=== PATIENT | male | born 1985 | race Caucasian/White ===

== ENCOUNTER 2022-03-21 01:56 | Emergency (ER) | payer MEDICAID ==
[~2022-03-21] VITALS: Ht 180.3 cm; Wt 74.8 kg
[2022-03-21] MEDS ORDERED: ketorolac trometh. 30mg/ml inj. IM ONE (02:25)
[2022-03-21] MEDS ORDERED: LIDOcaine 1% W/epiNEPHrine 1:200,000 10ml vial IJ ONE (03:00)
[2022-03-21] MEDS ORDERED: LIDOcaine 1% W/epiNEPHrine 1:100,000 20ml vial SQ ONE (03:10)
[2022-03-21 04:55] VITALS: BP 123/72
== END 2022-03-21 05:28 | disposition home or self-care (01) ==
LOC: ER 01:57
DX: S31.010A Laceration without foreign body of lower back and pelvis without penetration into retroperitoneum, initial encounter (principal); V49.9XXA Car occupant (driver) (passenger) injured in unspecified traffic accident, initial encounter; Y93.89 Activity, other specified; Y92.89 Other specified places as the place of occurrence of the external cause; Y99.8 Other external cause status; F15.10 Other stimulant abuse, uncomplicated
CPT/HCPCS: 12002; 70450; 71250; 72125; 74176; 96372; 99284; J1885

== ENCOUNTER 2022-07-03 20:52 | Emergency (ER) | payer MEDICAID ==
[2022-07-03] MEDS ORDERED: ketorolac trometh. 30mg/ml inj. IV ONE (21:25)
[2022-07-03] MEDS ORDERED: tetanus & diphtheria toxoid (Td) vaccine 0.5ml IMVAC ONE (21:25)
[2022-07-03 21:41] LABS: BASOPHILS # (AUTO) 0.1 X10'3 (0-0.2); BASOPHILS % (AUTO) 0.7 % (0-1); EOSINOPHILS # (AUTO) 0.6 X10'3 (0-0.9); EOSINOPHILS % (AUTO) 6.4 % (0-6); HEMATOCRIT 41.7 % (42.0-52.0); HEMOGLOBIN 14.3 g/dl (14.0-17.9); LYMPHOCYTES # (AUTO) 2.4 X10'3 (1.1-4.8); LYMPHOCYTES % (AUTO) 25.5 % (21-51); MEAN CORPUSCULAR HEMOGLOBIN 30.3 PG (27.0-31.0); MEAN CORPUSCULAR HGB CONC 34.2 g/dL (33.0-36.5); MEAN CORPUSCULAR VOLUME 88.7 FL (78-98); MEAN PLATELET VOLUME 8.4 FL (7.4-10.4); MONOCYTES # (AUTO) 0.7 X10'3 (0-0.9); MONOCYTES % (AUTO) 7.8 % (2-12); NEUTROPHILS # (AUTO) 5.5 X10'3 (1.8-7.7); NEUTROPHILS % (AUTO) 59.6 % (42-75); PLATELET COUNT 325 X10'3 (140-440); RED CELL DISTRIBUTION WIDTH 12.9 % (11.5-14.5); WHITE BLOOD COUNT 9.2 X10'3 (4.5-11.0)
[2022-07-03] MEDS ORDERED: ampicillin/sulbac 3gm/NS 100ml 100 ML IV ONE (21:50)
[2022-07-03] MEDS ORDERED: TETanus/Pertussis (Acell)/Diphther VAC/PF (Tdap-Adult) 0.5ml syringe IMVAC ONE (21:55)
[2022-07-03 21:58] LABS: ALANINE AMINOTRANSFERASE 22 U/L (12-78); ALBUMIN 3.6 G/DL (3.4-5.0); ALBUMIN/GLOBULIN RATIO 1.1 (1.1-1.5); ALKALINE PHOSPHATASE 65 IU/L (46-116); ANION GAP 11 (8-16); ASPARTATE AMINO TRANSFERASE 20 U/L (10-37); BILIRUBIN,TOTAL 0.5 MG/DL (0.1-1.0); BLOOD UREA NITROGEN 16 MG/DL (7-18); BUN/CREATININE RATIO 14.4 (5.4-32.0); CALCIUM 8.7 MG/DL (8.5-10.1); CHLORIDE 105 MMOL/L (99-107); CREATININE 1.11 MG/DL (0.60-1.10); GLUCOSE 130 MG/DL (70-104); SODIUM 140 MMOL/L (135-145); TOTAL CARBON DIOXIDE 23.8 MMOL/L (24-32); eGFR 75 ML/MIN
--- NOTE | 2022-07-03 22:00 | NUR ---
ICE PACKS APPLIED TO RIGHT FACE
--- NOTE | 2022-07-03 23:22 | NUR ---
PT IS 5FT 10 INCHES
--- NOTE | 2022-07-03 23:38 | NUR ---
BROTHER KUSHAL @ [phone] SIG OTHER ISMA [phone]
--- NOTE | 2022-07-03 23:41 | NUR ---
PUPILS 2MM BILAT EQUAL AND REACTIVE NORMALLY.
[2022-07-04 01:30] VITALS: BP 132/80
== END 2022-07-04 01:41 | disposition short-term general hospital (02) ==
LOC: ER 20:53
DX: S02.92XA Unspecified fracture of facial bones, initial encounter for closed fracture (principal); S01.411A Laceration without foreign body of right cheek and temporomandibular area, initial encounter; Z20.822 Contact with and (suspected) exposure to COVID-19; F15.90 Other stimulant use, unspecified, uncomplicated; Z56.0 Unemployment, unspecified; Z88.1 Allergy status to other antibiotic agents; Z98.890 Other specified postprocedural states; X58.XXXA Exposure to other specified factors, initial encounter; Y93.9 Activity, unspecified; Y92.89 Other specified places as the place of occurrence of the external cause; Y99.8 Other external cause status
CPT/HCPCS: 36415; 70450; 70486; 71045; 72125; 80053; 85025; 87811; 90471; 90715; 96365; 96375; 99285; J0295; J1885; A6446

== ENCOUNTER 2023-03-24 18:07 | Emergency (ER) | payer MEDICAID ==
[~2023-03-24] VITALS: Ht 180.3 cm; Wt 84.9 kg
[2023-03-24 18:10] VITALS: BP 138/80
== END 2023-03-24 19:25 | disposition home or self-care (01) ==
LOC: ER 18:08
DX: K40.90 Unilateral inguinal hernia, without obstruction or gangrene, not specified as recurrent (principal); F15.10 Other stimulant abuse, uncomplicated; Z88.1 Allergy status to other antibiotic agents; Z56.0 Unemployment, unspecified
CPT/HCPCS: 72192; 74018; 99284

== ENCOUNTER 2024-03-20 00:43 | Emergency (ER) | payer MEDICAID ==
[~2024-03-20] VITALS: Ht 180.3 cm; Wt 81.6 kg
[2024-03-20] MEDS: MIDAZolam 5mg/ml 2ml vial IV ONE (01:05)
[2024-03-20] MEDS ORDERED: iohexol 300mg/ml 100ml inj. ONE (01:11)
[2024-03-20] MEDS: ketamine 10mg/ml 20ml inj vial IV ONE ×6 (01:17→02:44)
[2024-03-20] MEDS: ketamine 50 mg/ml 10ml vial IV ONE (01:17)
[2024-03-20 01:52] LABS: APTT 23 SECONDS (22-32); INR 1.1 INR; PROTHROMBIN TIME 11.4 SECONDS (9.0-12.0)
[2024-03-20 01:56] LABS: EOSINOPHILS # (AUTO) 0.3 X10'3 (0-0.9)
[2024-03-20 02:05] LABS: ALBUMIN 3.7 G/DL (3.4-5.0); ANION GAP 12 (8-16); BASOPHILS % (AUTO) 0.6 % (0-1); BLOOD UREA NITROGEN 14 MG/DL (7-18); BUN/CREATININE RATIO 11.8 (10.0-20.0); CALCIUM 8.6 MG/DL (8.5-10.1); CHLORIDE 104 MMOL/L (99-107); CKMB RELATIVE INDEX 1.4 RATIO (0-2.5); CREATINE KINASE 250 U/L (39-308); CREATINE KINASE MB 3.6 ng/ml (0.3-3.6); CREATININE 1.19 MG/DL (0.60-1.10); EOSINOPHILS % (AUTO) 3.9 % (0-6); ETHANOL < 10 MG/DL (<10); GLUCOSE 140 MG/DL (70-104); HEMATOCRIT 37.9 % (42.0-52.0); HEMOGLOBIN 13.1 g/dl (14.0-17.9); LYMPHOCYTES # (AUTO) 2.5 X10'3 (1.1-4.8); LYMPHOCYTES % (AUTO) 29.7 % (21-51); MEAN CORPUSCULAR HEMOGLOBIN 29.9 PG (27.0-31.0); MEAN CORPUSCULAR HGB CONC 34.5 g/dL (33.0-36.5); MEAN CORPUSCULAR VOLUME 86.8 FL (78-98); MEAN PLATELET VOLUME 8.9 FL (7.4-10.4); MONOCYTES # (AUTO) 1.2 X10'3 (0-0.9); MONOCYTES % (AUTO) 14.2 % (2-12); NEUTROPHILS # (AUTO) 4.4 X10'3 (1.8-7.7); NEUTROPHILS % (AUTO) 51.6 % (42-75); PLATELET COUNT 326 X10'3 (140-440); POTASSIUM 3.7 MMOL/L (3.5-5.1); RED BLOOD COUNT 4.37 X10'6 (4.70-6.10); SODIUM 142 MMOL/L (135-145); WHITE BLOOD COUNT 8.5 X10'3 (4.5-11.0); eCRCL 90 ML/MIN; eGFR 68 ML/MIN
[2024-03-20 02:07] LABS: URINE AMPHETAMINE SCREEN POSITIVE (Neg); URINE BARBITUATE SCREEN NEGATIVE (Neg); URINE BENZODIAZEPINES SCREEN POSITIVE (Neg); URINE CANNABINOID SCREEN POSITIVE (Neg); URINE COCAINE SCREEN NEGATIVE (Neg); URINE METHADONE SCREEN NEGATIVE (Neg); URINE OPIATE SCREEN NEGATIVE (Neg); URINE PHENCYCLIDINE SCREEN NEGATIVE (Neg)
[2024-03-20 02:08] LABS: BILIRUBIN,URINE NEGATIVE (Neg); CLARITY,URINE SLIGHTLY CLOUDY (Clear); COLOR,URINE YELLOW (Yellow); GLUCOSE, URINE NEGATIVE (Neg); KETONES,URINE NEGATIVE (Neg); LEUKOCYTE ESTERASE ,URINE NEGATIVE (Neg); NITRITES, URINE NEGATIVE (Neg); OCCULT BLOOD,URINE TRACE-INTACT (Neg); PH,URINE 5.5 (4.8-8.0); PROTEIN,URINE 30 mg/dl (Neg); UROBILINOGEN,URINE 0.2 E.U/dL (0.2-1.0)
[2024-03-20 02:10] LABS: UA COLLECTION TYPE NON-SPECIFIED
[2024-03-20 02:12] LABS: HYALINE CASTS >30 /LPF (NEGATIVE); MUCUS STRANDS MANY /LPF (Neg)
[2024-03-20 02:13] LABS: WBC,URINE 0-4 /HPF (0-4)
[2024-03-20 02:16] LABS: FINE GRANULAR CAST 0-3 /LPF (NEGATIVE)
[2024-03-20 02:17] LABS: BACTERIA,URINE 1+ /HPF (Neg); SQUAMOUS EPITHELIAL CELL,UR MODERATE /LPF (FEW)
[2024-03-20] MEDS ORDERED: ceFAZolin/D5W- 1GM premix 50 ML IV SCH (02:25)
[2024-03-20] MEDS ORDERED: tetanus & diphtheria toxoid (Td) vaccine 0.5ml IMVAC ONE (02:25)
[2024-03-20] MEDS: ceFAZolin/D5W- 1GM premix 50 ML IV ONE (02:53)
[2024-03-20] MEDS: TETanus/Pertussis (Acell)/Diphther VAC/PF (Tdap-Adult) 0.5ml syringe IMVAC ONE (02:55)
[2024-03-20 03:21] VITALS: TEMP 98.1
[2024-03-20 05:44] VITALS: BP 125/90; PULSE 63; RESP 15; O2SAT 100
== END 2024-03-20 05:52 ==
LOC: ER 00:43
DX: S51.012A Laceration without foreign body of left elbow, initial encounter (principal); S31.113A Laceration without foreign body of abdominal wall, right lower quadrant without penetration into peritoneal cavity, initial encounter; S51.011A Laceration without foreign body of right elbow, initial encounter; S82.001A Unspecified fracture of right patella, initial encounter for closed fracture; R79.1 Abnormal coagulation profile; M54.2 Cervicalgia; R40.4 Transient alteration of awareness; F15.90 Other stimulant use, unspecified, uncomplicated; Z91.041 Radiographic dye allergy status; V29.888A Rider (driver) (passenger) of other motorcycle injured in other specified transport accidents, initial encounter; Y93.89 Activity, other specified; Y92.89 Other specified places as the place of occurrence of the external cause; Y99.8 Other external cause status
CPT/HCPCS: 12006; 36415; 70450; 71260; 72125; 73060; 73070; 73090; 73130; 73560; 74177; 80048; 80305; 80320; 81001; 82550; 82553; 84484; 85025; 85610; 85730; 86885; 86900; 86901; 90471; 90715; 93005; 96365; 99152; 99153; 99291; J0690; J3490; Q9967; 94760

== ENCOUNTER 2024-03-26 20:08 | Emergency (ER) | payer MEDICAID ==
[~2024-03-26] VITALS: Ht 182.9 cm; Wt 71.4 kg
[2024-03-26 20:10] VITALS: BP 157/91; PULSE 97; RESP 14; TEMP 99; O2SAT 99
[2024-03-26] MEDS ORDERED: DOXY-1 PO (20:53)
[2024-03-26] MEDS ORDERED: RIFA300C65 PO (20:53)
[2024-03-26] MEDS: DOXYCYCLINE 100MG CAPSULE PO STA (20:57)
[2024-03-26] MEDS: rifampin 300mg capsule PO SCH (21:02)
== END 2024-03-26 21:24 ==
LOC: ER 20:08
DX: L03.115 Cellulitis of right lower limb (principal); Z91.148 Patient's other noncompliance with medication regimen for other reason; F15.90 Other stimulant use, unspecified, uncomplicated; Z91.041 Radiographic dye allergy status; Z79.2 Long term (current) use of antibiotics; Z79.899 Other long term (current) drug therapy
CPT/HCPCS: 99283; A6258; A6446

== ENCOUNTER 2025-07-18 11:53 | Emergency (ER) | payer MEDICAID ==
[~2025-07-18] VITALS: Ht 180.3 cm; Wt 96.0 kg
[~2025-07-18 11:53] MED LIST: RIFA300C65 PO
[2025-07-18 12:00] VITALS: BP 136/93; PULSE 81; RESP 18; TEMP 97.1; O2SAT 97
--- NOTE | 2025-07-18 12:20 | Physician Documentation ---
History of Present Illness ~ Chief Complaint: Medical Clearance Stated Complaint: MED CLEARANCE Time Seen by MD: 12:04 Primary Medical Doctor: NONE HPI This is a 39-year-old male who presents requesting medical clearance to enter rehab facility due to history of opioid and methamphetamine abuse, patient reports that he is currently on Suboxone for opioid abuse. Patient reports last use two weeks prior. Patient reports no other acute symptoms or concerns and reports feeling otherwise well. Tetanus within 5 years?: No Medication Reconciliation Allergies: Coded Allergies: erythromycin base (Unverified Allergy, Unknown, 07/18/25) Scheduled Rifampin (Rifampin), 1 CAP PO Q12H Past Medical History Past Medical History: No Pertinent History Past Surgical History: orthopedic surgeries Alcohol Use: None Drug Use: methamphetamine Lives with: Family Lives In: Home Occupation: unemployed Review of Systems ROS As stated above in the HPI, otherwise all systems are reviewed and negative. Physical Exam Vital Signs: Temperature: 97.1, Source: Temporal, Heart Rate: 81, Respiratory Rate: 18, BP: 136/93, Pulse Oximetry: 97, Weight: 96.000 Physical Exam VITALS: Reviewed and as above. GENERAL: Alert, nontoxic appearing, no apparent distress. HEENT: PERRLA, EOMI RESPIRATORY: No increased work of breathing, no respiratory distress, speaking in full clear sentences, clear lung sounds in all banks CV: Regular rate and rhythm no murmur BACK: No CVA tenderness GI: Soft, nontender, bowel sounds present MUSCULOSKELETAL: ROM intact in all limbs, no deformities NEURO: GCS 15 PSYCH: Normal mood and affect. Stating no HI or SI Progress Results/Orders Results/Orders Vital Signs 07/18/25 12:00 Temp 97.1 Pulse 81 Resp 18 B/P (MAP) 136/93 Pulse Ox 97 Medical Decision Making Additional information obtaine: N/A Findings 39-year-old male presented requesting medical clearance to enter rehab program due to history of methamphetamine and opioid abuse, patient reports feeling otherwise well and physical exam benign. It is reassuring patient is on Suboxone therapy for opioid abuse therefore low risk for withdrawal symptoms, additionally reassuring patient reports no alcohol abuse making alcohol withdrawal unlikely. Patient is medically cleared to enter his rehab program and appropriate for outpatient follow up. Differential Dx:Considerations: Include: Intoxication-Alcohol, Intoxication- Other drug, Personality disorder, Substance abuse disorder, Acute delirium, Alcohol withdrawl syndrom Departure Time of Disposition: 12:20 Disposition: 01 HOME / SELF CARE / HOMELESS Impression: Primary Impression: General medical exam Additional Impressions: History of opioid abuse History of methamphetamine abuse Condition: Improved Discharge Instructions: Medical Screening Exam Additional Instructions: You are medically cleared to enter your rehabilitation program/sober living program. Please follow up with your primary care provider in the next few days. Please follow up as scheduled with primary care provider for management of your Suboxone. Please return to the emergency department for any new or worsening concerning symptoms. Referrals: NO PRIMARY CARE PROVIDER (PCP) Education Educated: Patient, Family Educated regarding: diagnosis, treatment, prognosis, need for follow up Signature Scribe Signature: No scribe Attestation: The note accurately reflects work and decisions made by me.MELVA Caraballo 07/18/25 21:01 Parts of this note were created using [employer] voice recognition software program. While efforts were made to correct any mistakes made by this voice recognition software program, nonsensical phrases may remain in this note. In addition, there may be errors and syntax, grammar, content and spelling. AUGIE LYONS Jul 18, 2025 12:20
== END 2025-07-18 12:32 | disposition home or self-care (01) ==
LOC: ER 11:54
DX: Z02.9 Encounter for administrative examinations, unspecified (principal); F11.10 Opioid abuse, uncomplicated; F15.10 Other stimulant abuse, uncomplicated; Z56.0 Unemployment, unspecified; Z88.1 Allergy status to other antibiotic agents
CPT/HCPCS: 99282